=== PATIENT | female | born 1970 | race Caucasian/White ===

== ENCOUNTER 2021-10-13 23:15 | Inpatient (IN) | payer MEDICAID ==
[~2021-10-13] VITALS: Ht 165.1 cm; Wt 98.0 kg
[~2021-10-13 23:15] MED LIST: CARDIZEM; FURO40TA4 PO; NITR100C6 PO
[2021-10-13 23:55] LABS: BASOPHILS # (AUTO) 0.1 X10'3 (0-0.2); EOSINOPHILS % (AUTO) 0.4 % (0-6); HEMATOCRIT 37.7 % (35.0-45.0); HEMOGLOBIN 12.5 g/dl (12.0-16.0); LYMPHOCYTES # (AUTO) 1.7 X10'3 (1.1-4.8); LYMPHOCYTES % (AUTO) 21.7 % (21-51); MEAN CORPUSCULAR HEMOGLOBIN 33.1 PG (27.0-31.0); MEAN CORPUSCULAR HGB CONC 33.2 g/dL (33.0-36.5); MEAN CORPUSCULAR VOLUME 99.6 FL (78-98); MEAN PLATELET VOLUME 8.6 FL (7.4-10.4); MONOCYTES # (AUTO) 0.9 X10'3 (0-0.9); MONOCYTES % (AUTO) 10.9 % (2-12); NEUTROPHILS # (AUTO) 5.2 X10'3 (1.8-7.7); PLATELET COUNT 189 X10'3 (140-440); RED BLOOD COUNT 3.78 X10'6 (4.20-5.60); RED CELL DISTRIBUTION WIDTH 13.8 % (11.5-14.5); WHITE BLOOD COUNT 7.8 X10'3 (4.5-11.0)
[2021-10-14 00:06] LABS: ALANINE AMINOTRANSFERASE 168 U/L (12-78); ALBUMIN 3.6 G/DL (3.4-5.0); ALKALINE PHOSPHATASE 76 IU/L (46-116); ANION GAP 15 (8-16); ASPARTATE AMINO TRANSFERASE 123 U/L (10-37); BILIRUBIN,TOTAL 0.7 MG/DL (0.1-1.0); BLOOD UREA NITROGEN 23 MG/DL (7-18); BUN/CREATININE RATIO 22.1 (6.6-38.0); CALCIUM 8.5 MG/DL (8.5-10.1); CHLORIDE 105 MMOL/L (99-107); CREATININE 1.04 MG/DL (0.40-0.90); GLUCOSE 122 MG/DL (70-104); POTASSIUM 3.9 MMOL/L (3.5-5.1); SODIUM 141 MMOL/L (135-145); TOTAL CARBON DIOXIDE 21.5 MMOL/L (24-32); TOTAL PROTEIN 7.3 G/DL (6.4-8.2); eGFR 56 ML/MIN
[2021-10-14] MEDS ORDERED: aspirin 81mg tab.chew PO ONE (03:10)
[2021-10-14] MEDS ORDERED: metoprolol succinate 25mg (24-HOUR) SR. Tablet PO ONE (03:25)
[2021-10-14] MEDS ORDERED: furosemide 10 MG/1 ML 10ml inj IV ONE (03:25)
[2021-10-14] MEDS ORDERED: magnesium hydroxide 30ml (MOM) UD suspension PO PRN (03:35)
[2021-10-14] MEDS ORDERED: potassium CL 10mEq/100ml bag 100 ML IV PRN (03:35)
[2021-10-14] MEDS ORDERED: PERFLUTREN PROTEIN-A MICROSPHR (Optison) 0.22 MG/ML 3ML VIAL IV PRN (03:35)
[2021-10-14] MEDS ORDERED: magnesium 2GM in 50ml NS 50 ML IV PRN (03:35)
[2021-10-14] MEDS ORDERED: mag hydrox/Alum hydrox/simeth 30ml oral suspension PO PRN (03:35)
[2021-10-14] MEDS ORDERED: acetaminophen 325mg tablet PO PRN (03:35)
[2021-10-14] MEDS ORDERED: magnesium Cl slow-release 64mg tablet PO PRN (03:35)
[2021-10-14] MEDS ORDERED: potassium Cl 20 mEq SR tablet PO PRN ×2 (03:35)
[2021-10-14] MEDS ORDERED: magnesium 4gm in 100ml NS 100 ML IV PRN (03:35)
[2021-10-14] MEDS ORDERED: ondansetron/PF 4mg/2ml inj IV PRN (03:35)
[2021-10-14 03:48] LABS: POTASSIUM 3.6 MMOL/L (3.5-5.1)
[2021-10-14 06:19] LABS: URINE AMPHETAMINE SCREEN NEGATIVE (Neg); URINE BARBITUATE SCREEN NEGATIVE (Neg); URINE BENZODIAZEPINES SCREEN NEGATIVE (Neg); URINE CANNABINOID SCREEN NEGATIVE (Neg); URINE COCAINE SCREEN NEGATIVE (Neg); URINE METHADONE SCREEN NEGATIVE (Neg); URINE OPIATE SCREEN POSITIVE (Neg); URINE PHENCYCLIDINE SCREEN NEGATIVE (Neg)
[2021-10-14 07:03] VITALS: BP 103/77
--- NOTE | 2021-10-14 07:10 | NUR ---
reeceived patient from ER, very anxious, with stable vital signs, refused to be given lasix that was due at 0800 as she verbalized that she was just given a dose of lasix in the ER right before she was transferred to our unit. will continue to monitor patient.
[2021-10-14] MEDS: sacubitril/valsartan 24mg-26mg tablet PO SCH ×2 (08:00→19:49)
[2021-10-14] MEDS: K and/or MAG REPLACEMENT MC SCH ×2 (08:00→20:00)
[2021-10-14] MEDS: furosemide 20 MG/2 ML vial IV SCH ×2 (08:00→19:48)
[2021-10-14] MEDS: busPIRone 15mg tablet PO SCH (08:28)
[2021-10-14] MEDS: carvedilol 6.25mg tablet PO SCH ×2 (08:28→19:48)
[2021-10-14] MEDS: heparin, porcine 5000 units/ml vial SQ SCH ×2 (08:29→19:47)
[2021-10-14] MEDS: docusate sod 100mg capsule PO SCH ×2 (08:29→19:48)
[2021-10-14] MEDS: LORazepam 0.5 MG tablet PO PRN ×3 (08:33→17:40)
[2021-10-14 11:00] VITALS: BP 98/81
[2021-10-14] MEDS ORDERED: MEXI150C PO (11:19)
[2021-10-14] MEDS ORDERED: POTA10TA37 PO (11:19)
[2021-10-14] MEDS ORDERED: MIRT-87 PO (11:19)
[2021-10-14] MEDS ORDERED: SACU1TAB7 PO (11:19)
[2021-10-14] MEDS ORDERED: PANT40TA54 PO (11:19)
[2021-10-14] MEDS ORDERED: CARV6.253 PO (11:19)
[2021-10-14] MEDS ORDERED: TRAZ-251 PO ×2 (11:19→11:52)
[2021-10-14] MEDS ORDERED: BUSP15TA3 PO (11:19)
[2021-10-14] MEDS ORDERED: SERT-433 PO (11:19)
[2021-10-14] MEDS ORDERED: ATI1T PO (11:50)
[2021-10-14] MEDS ORDERED: MORP15TA PO (11:50)
[2021-10-14] MEDS ORDERED: ALBU90AE PO (11:50)
--- NOTE | 2021-10-14 12:22 | NUR ---
patient requesting for a nicotine patch.. made aware..will continue to monitor pt. PAGER ID: [phone] MESSAGE: [id number]: doc, patient is asking if she can have a nicotine patch? pls advise.
[2021-10-14] MEDS: nicotine 14mg patch - 24hr TD SCH (13:21)
--- NOTE | 2021-10-14 14:14 | NUR ---
patient requesting a muscle rub for her neck pain since warm compress is not working for her, made aware... PAGER ID: [phone] MESSAGE: [id number]: doc, can we get an order for a muscle rub like bengay for her neck? warm compress is not working for her. pls advise.
[2021-10-14 16:00] VITALS: BP 97/67
[2021-10-14 18:00] VITALS: BP 133/81
--- NOTE | 2021-10-14 18:17 | NUR ---
Problems reprioritized. Patient report given, questions answered & plan of care reviewed with Michelle FRANKLIN.
--- NOTE | 2021-10-14 18:31 | NUR ---
Patient in room PCU 3024. I have received report from NOEMI Mosquera and had the opportunity to ask questions and assume patient care.
--- NOTE | 2021-10-14 19:12 | NUR ---
Patient very paranoid, locking herself in the bathroom and thinking the nurses are going to hurt her and take all her money. She had her shirt and all her lead off. Per dr. Tyler give Haldol 5mg IM now.
[2021-10-14] MEDS ORDERED: haloperidol lactate 5mg/ml inj IM ONE (19:15)
[2021-10-14] MEDS: LORazepam 1 MG tablet PO PRN (20:26)
[2021-10-15] MEDS: LORazepam 1 MG tablet PO PRN (05:08)
[2021-10-15 06:00] VITALS: BP 113/66
--- NOTE | 2021-10-15 06:33 | NUR ---
Problems reprioritized. Patient report given, questions answered & plan of care reviewed with Reta.
[2021-10-15 06:43] LABS: BASOPHILS % (AUTO) 0.7 % (0-1); EOSINOPHILS % (AUTO) 0.7 % (0-6); HEMATOCRIT 37.9 % (35.0-45.0); HEMOGLOBIN 12.6 g/dl (12.0-16.0); LYMPHOCYTES # (AUTO) 1.7 X10'3 (1.1-4.8); LYMPHOCYTES % (AUTO) 25.1 % (21-51); MEAN CORPUSCULAR HEMOGLOBIN 33.1 PG (27.0-31.0); MEAN CORPUSCULAR HGB CONC 33.2 g/dL (33.0-36.5); MEAN CORPUSCULAR VOLUME 99.7 FL (78-98); MEAN PLATELET VOLUME 8.7 FL (7.4-10.4); MONOCYTES # (AUTO) 0.9 X10'3 (0-0.9); MONOCYTES % (AUTO) 13.2 % (2-12); NEUTROPHILS # (AUTO) 4.1 X10'3 (1.8-7.7); NEUTROPHILS % (AUTO) 60.3 % (42-75); PLATELET COUNT 164 X10'3 (140-440); WHITE BLOOD COUNT 6.9 X10'3 (4.5-11.0)
[2021-10-15 07:13] LABS: ALANINE AMINOTRANSFERASE 127 U/L (12-78); ALKALINE PHOSPHATASE 78 IU/L (46-116); ANION GAP 16 (8-16); ASPARTATE AMINO TRANSFERASE 84 U/L (10-37); BILIRUBIN,TOTAL 1.2 MG/DL (0.1-1.0); BLOOD UREA NITROGEN 30 MG/DL (7-18); BUN/CREATININE RATIO 25.2 (6.6-38.0); CALCIUM 8.1 MG/DL (8.5-10.1); CHLORIDE 105 MMOL/L (99-107); CREATININE 1.19 MG/DL (0.40-0.90); GLUCOSE 107 MG/DL (70-104); POTASSIUM 3.7 MMOL/L (3.5-5.1); SODIUM 142 MMOL/L (135-145); TOTAL CARBON DIOXIDE 20.9 MMOL/L (24-32); TOTAL PROTEIN 6.1 G/DL (6.4-8.2); eGFR 48 ML/MIN
[2021-10-15] MEDS: K and/or MAG REPLACEMENT MC SCH (08:00)
[2021-10-15] MEDS: sacubitril/valsartan 24mg-26mg tablet PO SCH (08:17)
[2021-10-15] MEDS: nicotine 14mg patch - 24hr TD SCH (08:17)
[2021-10-15] MEDS: heparin, porcine 5000 units/ml vial SQ SCH (08:17)
[2021-10-15] MEDS: busPIRone 15mg tablet PO SCH (08:17)
[2021-10-15] MEDS: docusate sod 100mg capsule PO SCH (08:17)
[2021-10-15] MEDS: furosemide 20 MG/2 ML vial IV SCH (08:17)
[2021-10-15] MEDS: carvedilol 6.25mg tablet PO SCH (08:17)
== END 2021-10-15 11:57 | disposition home or self-care (01) | DRG 194 ==
LOC: ER 23:16 → ED HOLD 10-14 03:37 → PCU 3S 10-14 05:21
PROVIDERS: ADMIT Internal Medicine; ATTEND Family Medicine
DX: I50.23 Acute on chronic systolic (congestive) heart failure (principal); I24.9 Acute ischemic heart disease, unspecified; I42.9 Cardiomyopathy, unspecified; B19.20 Unspecified viral hepatitis C without hepatic coma; F15.90 Other stimulant use, unspecified, uncomplicated; F32.A Depression, unspecified; F41.9 Anxiety disorder, unspecified; N18.9 Chronic kidney disease, unspecified; F17.200 Nicotine dependence, unspecified, uncomplicated; Z63.8 Other specified problems related to primary support group; Z87.11 Personal history of peptic ulcer disease; Z95.810 Presence of automatic (implantable) cardiac defibrillator; Z88.0 Allergy status to penicillin; Z79.899 Other long term (current) drug therapy
CPT/HCPCS: 36415; 71045; 80053; 80305; 83735; 83880; 84132; 84484; 85025; 87081; 93005; 93306; 99285; G0378; J1630; J1644; J1940